=== PATIENT | male | born 1985 | race Caucasian/White ===

== ENCOUNTER 2017-03-14 10:15 | Observation (INO) ==
[2017-03-14] MEDS ORDERED: NS 1,000 ML IV ONE (10:39)
[2017-03-14 10:55] LABS: MANUAL DIFF NEEDED? NO
[2017-03-14 10:58] LABS: BASO% 0.2 % (0.0-0.8); EOS# 0.07 X1000 (0.0-0.7); EOS% 0.7 % (0.0-10.0); HEMATOCRIT 43.3 % (42.0-52.0); IMM GRAN# 0.01 X1000 (0.0-0.04); IMM GRAN% 0.1 % (0.0-0.5); LYMPH# 0.95 X1000 (1.2-3.4); LYMPH% 9.6 % (20.5-51.1); MCH 28.3 PG (27-31); MCHC 32.3 g/dL (33-37); MCV 87.5 FL (81-99); MONO# 0.85 X1000 (0.11-0.59); MONO% 8.6 % (1.7-9.3); MPV 10.3 FL (7.4-10.4); NEUT% 80.8 % (42.2-75.2); PLT 195 X1000 (130-400); RBC 4.95 XMIL (4.7-6.1)
[2017-03-14 11:14] LABS: ACETAMINOPHEN < 1.2 ug/mL (10-30); AGAP 13; ALBUMIN 4.4 g/dL (3.5-5.0); ALKALINE PHOSPHATASE 61 U/L (32-122); BUN 11 mg/dL (8-22); CALCIUM 8.8 mg/dL (8.8-10.2); CHLORIDE 102 mmol/L (98-107); COSMO 280; GOT 20 U/L (10-34); GPT 36 U/L (10-44); POTASSIUM 3.6 mmol/L (3.5-5.1); SODIUM 141 mmol/L (136-145); TCO2 26 mmol/L (25-35)
--- NOTE | 2017-03-14 11:48 | EKG Report ---
Test Performed on : 03/14/2017 10:48:16 AM Test Reason : OVERDOSE Blood Pressure : / mmHG Vent. Rate : 068 BPM Atrial Rate : 068 BPM P-R Int : 142 ms QRS Dur : 098 ms QT Int : 388 ms P-R-T Axes : 058 067 032 degrees QTc Int : 412 ms Normal sinus rhythm. Normal ECG No previous ECGs available Unconfirmed Result
[2017-03-14 11:52] LABS: UR AMPHETAMINES QUAL NONE DETECTED (NONE DETECT); UR BARBITUATES QUAL NONE DETECTED (NONE DETECT); UR BENZODIAZEPIN QUAL NONE DETECTED (NONE DETECT); UR CANNABINOIDS QUAL NONE DETECTED (NONE DETECT); UR COCAINE QUAL NONE DETECTED (NONE DETECT); UR MDMA QUAL NONE DETECTED (NONE DETECT); UR METHADONE QUAL NONE DETECTED (NONE DETECT); UR METHAMPHETAMINE QUAL NONE DETECTED (NONE DETECT); UR OPIATES QUAL NONE DETECTED (NONE DETECT); UR OXYCODONE QUAL NONE DETECTED (NONE DETECT); UR PCP QUAL NONE DETECTED (NONE DETECT); UR TCA QUAL NONE DETECTED (NONE DETECT)
--- NOTE | 2017-03-14 12:56 | Diag Imaging Result Document ---
PROCEDURE NAME: HEAD W/O CONTRAST - 03/14/2017 CT HEAD WITHOUT CONTRAST: COMPARISON: None available. FINDINGS: There is no discrete intracranial mass, mass effect, or intracranial hemorrhage. There is no evidence of hydrocephalus. There is no evidence of acute infarct given the limited sensitivity of CT versus MRI. The surrounding soft tissues and bony structures are essentially unremarkable. IMPRESSION: No evidence of acute intracranial pathology.
--- NOTE | 2017-03-14 13:15 | PROVIDER DOCUMENTATION ---
This chart was entered by Vince Moreno Scribe, acting as scribe for Laurita Oconnor MD. [id number] Abuse/Overdose - General Chief Complaint: Altered Mental Status Stated Complaint: AMS Time Seen by Provider: 03/14/17 10:30 Source: patient, family Allergies/Adverse Reactions: Allergies Allergy/AdvReac Type Severity Reaction Status Date / Time No Known Allergies Allergy Verified 07/13/15 13:03 Home Medications: Home Medication List Medication Instructions Recorded Confirmed Last Taken Type Amoxicillin/Potassium Clav 1 each PO DAILY #5 tablet 07/13/15 Unknown Rx [Augmentin 875-125 Tablet] Escitalopram Oxalate [Lexapro] 20 mg PO DAILY 07/13/15 07/13/15 07/12/15 History Ibuprofen [Motrin] 800 mg PO Q8H PRN PRN #30 tablet 07/13/15 Unknown Rx - History of Present Illness-Drug/Alcohol Nature of Presenting Problem: 32 yo M presents to the ER with family. Pt is alert and can follow commands, but is not talking. Pts family states he went to a constitution party last night. Dad found him this morning standing in the pavon and states he was out of it. Pt would not talk to family. The family states that he hangs out with people who take drugs and thinks that they gave him some. Family states pt does drink and dips, but they deny him taking any drugs. Pt nodded yes when asked if he wanted to speak, but was not able. Pt can follow commands asked, but moves very slowly. Family states this has not happened before. Pt denies taking anything, denies any pain , and has not eaten/drank anything today. This episode of drinking or use began:: last night Severity: reports: moderate Psychiatric Complaints: reports: denies symptoms Associated Symptoms: reports: denies symptoms Similar Symptoms Previously?: No Review of Systems - Adult - REVIEW OF SYSTEMS - ADULT ROS:: limited per condition (pt is non verbal, but can nod yes or no to questions) Constitutional: denies: chills, fever Respiratory: denies: cough, shortness of breath Gastrointestinal: denies: abdominal pain, nausea, vomiting Musculoskeletal: denies: back pain, neck pain All Other Systems: Reviewed and Negative Past History - Adult - PAST MEDICAL HISTORY-ADULT Review of Records: reports: Old Records Reviewed, Nursing Assessment Review, Medications Reviewed Major Childhood Illnesses: reports: denies history Cardiovascular: reports: denies history Respiratory: reports: denies history Gastrointestinal: reports: denies history Obstetrical/Gynecological: reports: denies history Genitourinary: reports: denies history Musculoskeletal: reports: denies history Neurological: reports: denies history Endocrine/Immune: reports: denies history Other Conditions: reports: denies history - IMMUNIZATION STATUS Childhood Immunizations: See Nurse Assessment Flu Vaccine: See Nurse Assessment - FAMILY HISTORY Family History: reviewed, not pertinent Physical Exam-General - PHYSICAL EXAM-ADULT Initial Vital Signs Reviewed: Yes - CONSTITUTIONAL General Appearance: alert, slow to respond, other (not verbal) - NECK Neck: full range of motion, supple - RESPIRATORY Respiratory: chest non-tender, lungs clear, normal breath sounds - CARDIOVASCULAR Cardiovascular: normal peripheral pulses, regular rate, rhythm - GASTROINTESTINAL (ABDOMEN) Abdominal Exam: normal bowel sounds, non tender, soft - MUSCULOSKELETAL Extremity: normal range of motion, normal gait - SKIN Integumentary: normal color, normal turgor Progress - PLAN OF CARE/RESULTS Progress/Plan/Lab Results: Vital Signs - 8 hr 03/14/17 10:16 03/14/17 11:21 03/14/17 12:11 Temperature 98.7 F Pulse Rate 87 67 70 Respiratory Rate 18 18 18 Blood Pressure 121/075 113/69 110/62 O2 Sat by Pulse Oximetry 95 95 95 03/14/17 12:51 Temperature Pulse Rate 66 Respiratory Rate 15 Blood Pressure 122/60 O2 Sat by Pulse Oximetry 95 Laboratory Results - last 24 hr 03/14/17 03/14/17 03/14/17 10:49 10:49 10:49 WBC 9.88 RBC 4.95 Hgb 14.0 Hct 43.3 MCV 87.5 MCH 28.3 MCHC 32.3 L RDW Std Deviation 12.8 Plt Count 195 MPV 10.3 Immature Gran % (Auto) 0.1 Neut % (Auto) 80.8 H Lymph % (Auto) 9.6 L [facility] % (Auto) 8.6 Eos % (Auto) 0.7 Baso % (Auto) 0.2 Immature Gran # (Auto) 0.01 Neut # (Auto) 7.98 H Lymph # (Auto) 0.95 L [facility] # (Auto) 0.85 H Eos # (Auto) 0.07 Baso # (Auto) 0.02 Sodium 141 Potassium 3.6 Chloride 102 Carbon Dioxide 26 Anion Gap 13 BUN 11 Creatinine 1.0 Estimated GFR/1.73 m2 > 60 BUN/Creatinine Ratio 11 Glucose 89 Calculated Osmolality 280 Calcium 8.8 Total Bilirubin 0.60 AST 20 ALT 36 Alkaline Phosphatase 61 Creatine Kinase Total Protein 7.0 Albumin 4.4 Globulin 3.0 Albumin/Globulin Ratio 2.0 Salicylates < 3.00 L Urine Opiates Screen Ur Oxycodone Screen Urine Methadone Screen Acetaminophen < 1.2 L Ur Barbituates Screen Ur Tricyclics Screen Ur Phencyclidine Scrn Ur Amphetamines Screen U Methamphetamines Scrn Urine MDMA Screen U Benzodiazepines Scrn Urine Cocaine Screen U Cannabinoids Screen Plasma/Serum Ethyl Alc 03/14/17 03/14/17 10:49 11:30 WBC RBC Hgb Hct MCV MCH MCHC RDW Std Deviation Plt Count MPV Immature Gran % (Auto) Neut % (Auto) Lymph % (Auto) [facility] % (Auto) Eos % (Auto) Baso % (Auto) Immature Gran # (Auto) Neut # (Auto) Lymph # (Auto) [facility] # (Auto) Eos # (Auto) Baso # (Auto) Sodium Potassium Chloride Carbon Dioxide Anion Gap BUN Creatinine Estimated GFR/1.73 m2 BUN/Creatinine Ratio Glucose Calculated Osmolality Calcium Total Bilirubin AST ALT Alkaline Phosphatase Creatine Kinase 216 H Total Protein Albumin Globulin Albumin/Globulin Ratio Salicylates Urine Opiates Screen NONE DETECTED Ur Oxycodone Screen NONE DETECTED Urine Methadone Screen NONE DETECTED Acetaminophen Ur Barbituates Screen NONE DETECTED Ur Tricyclics Screen NONE DETECTED Ur Phencyclidine Scrn NONE DETECTED Ur Amphetamines Screen NONE DETECTED U Methamphetamines Scrn NONE DETECTED Urine MDMA Screen NONE DETECTED U Benzodiazepines Scrn NONE DETECTED Urine Cocaine Screen NONE DETECTED U Cannabinoids Screen NONE DETECTED Plasma/Serum Ethyl Alc Orders Category Date Time Status Cardiac Monitoring DIRECTED Care 03/14/17 10:38 Active Finger Stick Blood Sugar (ED) DIRECTED Care 03/14/17 10:38 Active Saline Loc DIRECTED Care 03/14/17 10:38 Active HEAD W/O CONTRAST [CT] Stat Exams 03/14/17 10:39 Draft ABG [RESP] Routine Lab 03/14/17 13:02 Ordered ACETAMINOPHEN [TDM] Stat Lab 03/14/17 10:49 Completed ALCOHOL BLOOD Stat Lab 03/14/17 10:49 Completed CBC WITH ELECTRONIC DIFF [HEME] Stat Lab 03/14/17 10:49 Completed CK TOTAL [CHEM] Stat Lab 03/14/17 10:49 Completed COMPREHENSIVE METABOLIC PANEL [CHEM] Stat Lab 03/14/17 10:49 Completed SALICYLATES [TDM] Stat Lab 03/14/17 10:49 Com[address]INE DRUG SCREEN PL Stat Lab 03/14/17 11:30 Completed 0.9% Sodium Chloride Inj [Ns] 1,000 ml Med 03/14/17 10:39 Discontinued IV 999 mls/hr Pulse Oximetry Stat Oth 03/14/17 10:38 Active EKG [EKG] Stat Ther 03/14/17 10:38 Draft Result Diagrams: 03/14/17 10:49 03/14/17 10:49 - EKG 1 Time of EKG reading by physician:: 10:50 EKG Read and Signed by:: Laurita Oconnor EKG Interpretation (*Must complete 3 of following elements*): Normal Rate: 68 Rhythm: NSR [place]: normal QRS: normal [place] Interval: normal ST Wave: normal Comments: normal ekg - CT/MRI 1 CT Study: Head Impression: Normal CT Results: negative CT Departure - Departure Time of Disposition Decision: 13:08 DIAGNOSIS: Altered mental status Disposition: ADMITTED INPATIENT 09 Certified Medical Emergency: Emergent Condition: Stable Additional Freetext Instructions: ED Follow Up Instructions: You have been treated by a care provider in the Emergency Department. These instructions are being provided to you so you can have an understanding of how to care for yourself upon discharge. Upon discharge from the Emergency Department, you are responsible for making arrangements for follow-up care by a physician of your choice. Take all prescribed medications as directed. Return to the Emergency Department immediately for any new or worsening symptoms. You may call the Physician Referral phone number at [phone] to obtain a list of Physicians who are taking new patients. Referrals and Follow-Ups: None,PCP [Primary Care Provider] - - Critical Care Note This patient required my direct & personal management of CC.: No This chart was documented by the indicated scribe, (Vince Moreno Scribe) and accurately reflects the services I performed and decisions made by Elvin zhou Tom-Meka M., MD, as attested by the provider's signature.
[2017-03-14 13:24] LABS: BE 0.1 mmoll (-3.0-3.0); BLOOD TYPE ARTERIAL; METHB 1.4 % (0.0-1.5); O2(CT) 17.5 mL/dL (15.0-23.0); PCO2(98.6) 46 mmHg (35-45); PO2(98.6) 77 mmHg (60-100); SAMPLE BLOOD; SAO2 97.5 % (95.0-100.0); THB 13.3 g/dL (11.5-17.4); pH(98.6) 7.36 (7.35-7.45)
[2017-03-14 13:34] LABS: DRAW SITE R RADIAL; MODALITY ROOM AIR
[2017-03-14 13:35] LABS: ALLEN TEST YES
[2017-03-14] MEDS ORDERED: ZOFRAN IV PRN (13:37)
[2017-03-14] MEDS ORDERED: TYLENOL PO PRN (13:37)
[2017-03-14] MEDS ORDERED: ATIVAN IV PRN (13:39)
[2017-03-14] MEDS ORDERED: LOVENOX SUBQ SCH (13:45)
[2017-03-14 14:20] LABS: AGAP 14; ALBUMIN 3.9 g/dL (3.5-5.0); ALKALINE PHOSPHATASE 53 U/L (32-122); BUN 11 mg/dL (8-22); CALCIUM 8.3 mg/dL (8.8-10.2); CHLORIDE 105 mmol/L (98-107); COSMO 280; GOT 18 U/L (10-34); GPT 32 U/L (10-44); POTASSIUM 3.6 mmol/L (3.5-5.1); SODIUM 141 mmol/L (136-145); TCO2 23 mmol/L (25-35); TOTAL PROTEIN 6.1 g/dL (6.3-8.3)
[2017-03-14] MEDS: NS 1,000 ML IV SCH (14:33)
--- NOTE | 2017-03-14 15:06 | HISTORY AND PHYSICAL ---
CHIEF COMPLAINT: This patient was brought in to the emergency department secondary to altered mental status. HISTORY OF PRESENT ILLNESS: A 32-year-old, male with no past medical history was brought in by his parents with a chief complaint of altered mental status, apparently this patient went to a republican yesterday in the afternoon and he never went back home. His dad decided to pick him up and when he found Mr. Correa he standing in the hallway just staring at the wall then he took his son to the car and the son was not talking and he just was staring at the road and closing his eyes. Here in the emergency department, we did a CT of the head that did not show any acute abnormality. No motor deficits. When I examined the patient, he was answering my questions properly, but he was not answering all of then. He was just sleepy, and his answers were slow. This patient will be admitted to the ICU. At this point, we are not sure if this patient took any kind of drugs. He does not remember taking any. Urine toxicology negative for drugs. REVIEW OF SYSTEMS: All the 14 points of review of systems were reviewed, and all negative except as per history of present illness. PAST MEDICAL HISTORY: None. PAST SURGICAL HISTORY: None. SOCIAL HISTORY: They denied alcohol, drugs and smoking cigarettes. FAMILY HISTORY: Noncontributory. PHYSICAL EXAMINATION: VITAL SIGNS: Temperature 98.7 degrees, pulse 66, respiratory rate 15, blood pressure 122/60, O2 saturation 95% on room air. HEENT: Head normocephalic. No trauma. PERRLA. NECK: Supple. No JVD. No masses. Central trachea. CHEST: Clear to auscultation. No wheezing. No rales. CARDIOVASCULAR: RRR. No murmurs. ABDOMEN: Soft, nontender, nondistended. No hepatosplenomegaly. EXTREMITIES: No edema. No clubbing. No cyanosis. NEUROLOGICAL: The patient is sleepy but arousable. His answers are slow. He is following commands. He is answering some of my questions. He is able to recognize his parents. LABORATORY DATA: WBC 9.8, hemoglobin 14, hematocrit 43.3, platelets 195,000. Sodium 141, potassium 3.6, chloride 102, bicarbonate 26, BUN 11, creatinine 1, glucose 89, calcium 8.8, AST 20, ALT 36, alkaline phosphatase 61, CK 216, albumin 4.4, urine toxicology negative and no alcohol. ASSESSMENT AND PLAN: Altered mental status. At this point, we are not sure if this patient has been taking any kind of new drugs that we cannot evaluate with urine toxicology. Anyway, I will put this patient in the ICU and I will monitor this patient during the night. At this moment, this patient is not having any respiratory distress or pain. I will check the CBC and CMP in the morning. The parents were notified, they were at the bedside. cc: Travis Mathis MD
[2017-03-14 20:41] LABS: URINE CULTURE PL NEEDED? NO
[2017-03-14 20:56] LABS: BILIRUBIN URINE NEGATIVE (NEGATIVE); BLOOD URINE 4+ (NEGATIVE); CLARITY CLEAR (CLEAR); COLOR YELLOW; GLUCOSE URINE NEGATIVE (NEGATIVE); LEUKOCYTES URINE NEGATIVE (NEGATIVE); NITRITE URINE NEGATIVE (NEGATIVE); PROTEIN URINE NEGATIVE (NEGATIVE); SP GRAVITY URINE 1.015; UROBILINOGEN URINE NORMAL
[2017-03-14 21:01] LABS: URINE CAST NONE SEEN /LPF; URINE CRYSTAL NONE SEEN /HPF; URINE EPITHELIAL CELLS <10 /HPF (<10); URINE SOURCE CATH; URINE WBC <10 /HPF (<10)
[2017-03-15 05:04] LABS: MANUAL DIFF NEEDED? NO
[2017-03-15 05:07] LABS: BASO% 0.5 % (0.0-0.8); EOS# 0.19 X1000 (0.0-0.7); EOS% 3.1 % (0.0-10.0); HEMATOCRIT 42.6 % (42.0-52.0); HEMOGLOBIN 13.6 g/dL (14.0-18.0); IMM GRAN# 0.02 X1000 (0.0-0.04); IMM GRAN% 0.3 % (0.0-0.5); LYMPH# 1.26 X1000 (1.2-3.4); LYMPH% 20.3 % (20.5-51.1); MCH 28.6 PG (27-31); MCHC 31.9 g/dL (33-37); MCV 89.5 FL (81-99); MONO# 0.54 X1000 (0.11-0.59); MONO% 8.7 % (1.7-9.3); MPV 10.7 FL (7.4-10.4); NEUT% 67.1 % (42.2-75.2); PLT 183 X1000 (130-400); RBC 4.76 XMIL (4.7-6.1)
[2017-03-15] MEDS: NS 1,000 ML IV SCH (09:01)
[2017-03-15 13:29] VITALS: BP 143/72
--- NOTE | 2017-03-15 20:41 | DISCHARGE SUMMARY ---
ADMISSION DATE: 03/14/2017 DISCHARGE DATE: 03/15/2017 PRIMARY CARE PHYSICIAN: None. ADMISSION DIAGNOSIS: Altered mental status. DISCHARGE DIAGNOSIS: Toxic Metabolic encephalopathy Suspected Recreational Drug Use. Aspiration Pneumonia SUMMARY OF FINDINGS: This is a 32-year-old male who presented to the emergency room with altered mental status. Apparently he had went to a republican the day prior and had never gone back home. Dad decided to pick him up and when he found the patient he was standing in the hallway just staring at the wall. Hen then took his son to the car and the son was not talking. He was just staring at the road and closing his eyes. In the emergency room a head CT was done that did not show any acute abnormality, no motor deficit. On examination, the patient answered questions appropriately but he was not answering all of them. He was sleepy and his answers were slow. He was admitted initially to Intensive Care. It was unsure yet if he took any type of drugs but his urine toxicology was negative for drugs. His electrolytes and laboratory data have all been normal. He is alert and awake today, and answering questions appropriately. It is noted that his head CT showed no evidence of an acute intracranial pathology so he will be discharged home today. DISCHARGE MEDICATIONS: 1. Augmentin 1 p.o. daily #5 with no refills. 2. Lexapro 20, 1 p.o. daily. 3. Ibuprofen 800 mg p.o. q.8 hours p.r.n. FOLLOWUP: We gave him the number to the physician referral line and also information on [facility] to have [facility]. All discharge instructions have been reviewed with the patient. He verbalizes understanding. DISCHARGE TIME: 35 minutes. Dictated by YOBANI Desai for Howard Asif MD cc: YOBANI Dseai MD [facility]
== END 2017-03-15 14:48 | disposition home or self-care (01) ==
LOC: P.ED 10:15 → INTOOBSV 14:25 → P.ICU 14:25 → SUATTDRO 14:25 → P.MEDSURG 18:29
PROVIDERS: ATTEND Internal Medicine

== ENCOUNTER 2019-02-17 13:09 | Observation (INO) ==
[2019-02-17] MEDS ORDERED: TYLENOL PO PRN (13:11)
[2019-02-17] MEDS ORDERED: ZOFRAN IV PRN (13:11)
[2019-02-17] MEDS ORDERED: LABETALOL IV PRN (13:17)
[2019-02-17] MEDS ORDERED: SODIUM CHLORIDE 0.9% INJ SCH (13:30)
--- NOTE | 2019-02-17 14:05 | HISTORY AND PHYSICAL ---
CHIEF COMPLAINT: Bright red blood in his stool. HISTORY OF PRESENT ILLNESS: The patient is a 34-year-old white male followed in my medical practice, who has been having difficulty over the past month. He is having some pain in his right abdominal area, and only today has noted some bright red rectal bleeding. He was in yesterday and had labs which were normal to include a hemoglobin of 15.9, white count 8.23, platelets 243, BUN of 8, creatinine 0.9. Liver function tests had 1 mildly elevated SGPT at 66. Amylase, lipase normal. D-dimer was normal. Urinalysis normal. This was all done yesterday after he had some complaints of some right thoracic back pain off and on for about a month and some right abdominal pain. He also had some nausea, vomiting, and diarrhea very recently, he has never had EGD or colonoscopy. He has been off his BP medications over the past 3 months, and has a history of severe hypertension diagnosed in 2014. Yesterday, we restarted him on Lotrel 10/40 daily and Bystolic 5 mg daily. He said he took 1 dose of those. Otherwise, he is on no medications. ALLERGIES: No known drug allergies. PAST MEDICAL HISTORY: 1. Hypertension diagnosed 2014. 2. Hypercholesterolemia diagnosed 2016. 3. Vitamin D deficiency diagnosed 2016. 4. Depression diagnosed 2014. PAST SURGICAL HISTORY: Negative. FAMILY HISTORY: Notable for hypertension in grandmother x2, grandfather x2, mother, father and sister; CVA in his grandfather; diabetes mellitus in his mother and father; NE and coronary artery disease in his grandfather and father; lung cancer in his grandfather; COPD in 2 grandmothers. SOCIAL HISTORY: Patient lives in [place]. He is . He has one 14-year-old stepdaughter. Has never been a smoker. Drinks rare alcohol. 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 REVIEW OF SYSTEMS: Negative, except as above. PHYSICAL EXAM: VITAL SIGNS: Weight 229, which is stable, height 5 feet 9 inches tall, blood pressure 175/115, pulse 97, BMI 33. GENERAL: Muscular white male in no acute distress. SKIN: Warm and dry. No rashes. No bruising. EYES: PERRL, EOMI. Sclerae anicteric. OP no redness. Tongue in the midline. NECK: No LA, TMG, JVD, bruits. CV: RRR without murmur. LUNGS: CTA. BACK: Mild tenderness to palpation right mid thoracic paraspinous musculature, FROM at the back. ABDOMEN: Soft. Active bowel sounds. Mild to moderate tenderness right upper quadrant. Mild tenderness right lower quadrant. No mass or organomegaly. No rebound or guarding. : Testicular exam deferred. RECTAL: Shows normal size prostate. Heme-positive stool prominently with no external hemorrhoids nor anal fissure identified on exam. EXTREMITIES: No CCE. PP 2+. NEUROLOGIC: CN 2-12 intact. NF. ASSESSMENT: 1. Hematochezia. 2. Abdominal pain. 3. Recent nausea, vomiting, diarrhea. 4. Right thoracic back pain. 5. Urgent hypertension. 6. Noncompliance. 7. Hypercholesterolemia. 8. Vitamin D deficiency. 9. History of depression. PLAN: Admit the patient. Check repeat CBC. Check PT, PTT, CMP. We will check CT abdomen and pelvis without contrast. We had ordered an outpatient abdominal ultrasound, but we may get that inpatient. We will wait and see what his labs and CT show. We will work on his blood pressure with p.r.n. labetalol and continue his Lotrel 10/40 and daily Bystolic at 5 mg daily. Check EKG. Note that his urine yesterday failed to show any protein or blood. Monitor BPs on telemetry. Give him low-dose normal saline with potassium supplementation, IV Protonix. cc: Cornelius Estrella MD
--- NOTE | 2019-02-17 14:25 | Diag Imaging Result Doc PS360 ---
EXAM: ABDOMEN FLAT/UPRIGHT HISTORY: hematochezia TECHNIQUE: Upright and supine abdomen, two views COMPARISON: None. FINDINGS: There is stool throughout the colon. No organomegaly. No foreign body. Mild scoliosis. No abnormal abdominal calcifications. IMPRESSION: Prominent constipation Electronically signed by Michael Ortiz 02/17/2019 2:22 PM
--- NOTE | 2019-02-17 14:57 | EKG Report ---
Test Performed on : 02/17/2019 2:42:19 PM Test Reason : urgent htn Blood Pressure : / mmHG Vent. Rate : 085 BPM Atrial Rate : 085 BPM P-R Int : 152 ms QRS Dur : 098 ms QT Int : 374 ms P-R-T Axes : 050 020 024 degrees QTc Int : 445 ms Normal sinus rhythm. Nonspecific T wave abnormality Abnormal ECG When compared with ECG of 10-APR-2018 23:49, No significant change was found Confirmed by Rebecca BRIONES, Jr ([id number]) on 02/18/2019 8:55:22 AM
--- NOTE | 2019-02-17 15:23 | Diag Imaging Result Doc PS360 ---
EXAM: CT ABDOMEN/PELVIS W/O CONTRAST HISTORY: hematochezia/abd pain TECHNIQUE: CT abdomen and pelvis without contrast COMPARISON: None. FINDINGS: No calcified gallstones or adjacent inflammation. There is likely mild fatty infiltration of the liver. No focal hepatic abnormality identified on this noncontrasted study. Normal spleen, pancreas, and adrenal glands. No renal stones. No hydronephrosis normal aorta. Normal appendix. No abscess. No bowel obstruction. No ascites. The urinary bladder is moderately distended and is normal. Normal prostate. IMPRESSION: No acute abnormality identified This exam was performed using automated exposure control, adjustment of mA or kV according to patient size, and/or use of iterative reconstruction technique. Electronically signed by Michael Ortiz 02/17/2019 3:21 PM
[2019-02-17 16:01] LABS: BASO# 0.03 X1000 (0.0-0.2); BASO% 0.4 % (0.0-0.8); EOS# 0.07 X1000 (0.0-0.7); EOS% 0.9 % (0.0-10.0); HEMATOCRIT 44.8 % (42.0-52.0); HEMOGLOBIN 14.7 g/dL (14.0-18.0); IMM GRAN# 0.03 X1000 (0.0-0.04); IMM GRAN% 0.4 % (0.0-0.5); LYMPH# 1.43 X1000 (1.2-3.4); LYMPH% 18.5 % (20.5-51.1); MCH 28.5 PG (27-31); MCHC 32.8 g/dL (33-37); MONO# 0.53 X1000 (0.11-0.59); MONO% 6.9 % (1.7-9.3); MPV 10.1 FL (7.4-10.4); NEUT# 5.62 X1000 (1.4-6.5); NEUT% 72.9 % (42.2-75.2); PLT 224 X1000 (130-400); RBC 5.15 XMIL (4.7-6.1); RDW 13.1 % (11.5-14.5); WBC 7.71 X1000 (4.8-10.8)
[2019-02-17 16:19] LABS: AGAP 10; ALB/GLOB RATIO 1.7; ALBUMIN 4.4 g/dL (3.5-5.0); ALKALINE PHOSPHATASE 60 U/L (32-122); BUN 7 mg/dL (8-22); CALCIUM 8.9 mg/dL (8.8-10.2); CHLORIDE 110 mmol/L (98-107); COSMO 290; CREATININE 0.8 mg/dL (0.7-1.2); ESTIMATED GFR > 60; GLUCOSE 119 mg/dL (70-104); GOT 27 U/L (10-34); GPT 65 U/L (10-44); POTASSIUM 4.1 mmol/L (3.5-5.1); SODIUM 146 mmol/L (136-145); TCO2 26 mmol/L (25-35); TOTAL BILIRUBIN 0.28 mg/dL (0.20-1.00)
[2019-02-17 16:21] LABS: INR 0.89; PROTIME 12.7 Seconds (11.0-16.0)
[2019-02-17 16:22] LABS: PTT 30.5 Seconds (22.3-41.8)
[2019-02-17] MEDS: NS + KCL 20 MEQ 1,000 ML IV SCH (17:03)
[2019-02-17] MEDS: PROTONIX IV SCH (17:13)
[2019-02-17] MEDS: DILAUDID IV PRN (21:09)
[2019-02-18] MEDS: DILAUDID IV PRN ×3 (02:57→20:07)
[2019-02-18] MEDS: NS + KCL 20 MEQ 1,000 ML IV SCH (02:58)
[2019-02-18 06:41] LABS: AGAP 8; BUN 6 mg/dL (8-22); CALCIUM 8.4 mg/dL (8.8-10.2); CHLORIDE 108 mmol/L (98-107); COSMO 277; CREATININE 0.7 mg/dL (0.7-1.2); ESTIMATED GFR > 60; GLUCOSE 95 mg/dL (70-104); POTASSIUM 3.9 mmol/L (3.5-5.1); SODIUM 140 mmol/L (136-145); TCO2 24 mmol/L (25-35)
[2019-02-18 06:48] LABS: BASO# 0.03 X1000 (0.0-0.2); BASO% 0.5 % (0.0-0.8); EOS% 1.6 % (0.0-10.0); HEMATOCRIT 42.7 % (42.0-52.0); HEMOGLOBIN 13.9 g/dL (14.0-18.0); IMM GRAN# 0.04 X1000 (0.0-0.04); IMM GRAN% 0.6 % (0.0-0.5); LYMPH# 1.57 X1000 (1.2-3.4); MCH 28.4 PG (27-31); MCHC 32.6 g/dL (33-37); MCV 87.3 FL (81-99); MONO% 7.9 % (1.7-9.3); MPV 10.6 FL (7.4-10.4); NEUT# 4.05 X1000 (1.4-6.5); NEUT% 64.4 % (42.2-75.2); PLT 203 X1000 (130-400); RBC 4.89 XMIL (4.7-6.1); RDW 13.4 % (11.5-14.5); WBC 6.29 X1000 (4.8-10.8)
[2019-02-18] MEDS: LOTREL 5/20 MG PO SCH (09:45)
[2019-02-18] MEDS: BYSTOLIC PO SCH (09:45)
[2019-02-18] MEDS ORDERED: SALINE LOCK IV FLUID XX ONE (09:53)
--- NOTE | 2019-02-18 12:20 | Diag Imaging Result Doc PS360 ---
US ABDOMEN-COMPLETE - 02/18/2019 INDICATION: abd pain/nausea COMPARISON: CT from 02/17/2019 FINDINGS: The liver is moderately fatty. No liver masses. The pancreas is obscured. The gallbladder and both kidneys are normal. The spleen is slightly enlarged. Spleen size is 13.5 x 13.1 x 4.8 cm. Common bile duct measures 3 mm. Aorta, IVC, and main portal vein are patent. IMPRESSION: Fatty liver. Mild splenomegaly. Electronically signed by Hitesh Uriostegui 02/18/2019 12:18 PM
[2019-02-18] MEDS: PROTONIX IV SCH (16:47)
[2019-02-18] MEDS: MIRALAX PO SCH (16:48)
--- NOTE | 2019-02-18 17:14 | Diag Imaging Result Doc PS360 ---
EXAM: HIDA SCAN W/ EJECTION FRACTION 02/18/2019 HISTORY: abd pain/nausea TECHNIQUE: Hepatobiliary scan with ejection fraction, 4.3 mCi of technetium 99m Choletec. COMMENT: There is activity in the gallbladder on the first image. There is also activity in the small bowel. After fatty meal administration the gallbladder ejects 59% of the activity. IMPRESSION: Normal study. Electronically signed by Michael Shah 02/18/2019 5:11 PM
[2019-02-19 08:07] VITALS: BP 159/107
[2019-02-19] MEDS: LOTREL 5/20 MG PO SCH (08:54)
[2019-02-19] MEDS: BYSTOLIC PO SCH (08:54)
[2019-02-19] MEDS: MIRALAX PO SCH (08:55)
--- NOTE | 2019-02-20 14:03 | DISCHARGE SUMMARY ---
ADMISSION DATE: 02/17/2019 DISCHARGE DATE: 02/19/2019 DIAGNOSES: 1. Hematochezia, thought related to probable internal hemorrhoids. 2. Abdominal pain improved. 3. Recent nausea, vomiting, and diarrhea improved. 4. Right thoracic back pain. 5. Urgent hypertension. 6. Noncompliance. 7. Hypercholesterolemia. 8. Vitamin D deficiency. 9. History of depression. 10. Constipation. PROCEDURES: 1. Flat and upright of the abdomen revealing prominent constipation. 2. CT abdomen and pelvis without contrast reveals mild fatty infiltration of the liver otherwise negative. 3. Abdominal ultrasound done 02/18 revealing fatty liver, mild splenomegaly. No gallstones. 4. HIDA scan with CCK revealing EF of 59% which is normal. REASON FOR ADMISSION AND HOSPITAL COURSE: The patient is a 34-year-old white male followed in my medical practice came into the office with complaints of pain in his right abdomen and noted on the day of admission some bright red rectal bleeding. He had been lab up the day prior to admission with a visit in my office as well and his white count was normal at 8.23, platelets 249,000, hemoglobin 15.9, BUN 8, creatinine 0.9. Liver function tests showed mild elevation in SGPT at 66, amylase, lipase normal, D-dimer normal, urinalysis normal. Patient also had some right thoracic back pain off and on for about a month and some into the right abdomen and had developed some nausea, vomiting, diarrhea recently. He has never had EGD and colonoscopy. The patient had been noncompliant with blood pressure medicines for 3 months prior to the day before this admission and then he was started back on Lotrel through the office at 10/40 daily and Bystolic 5 mg daily. Blood pressures on the day of admission were still markedly elevated at 175/115 and he was having the abdominal pain. He was tender in the right abdomen. Rectal exam failed to show any external hemorrhoids and no anal fissure. Prostate was normal size and without nodules but he was heme-positive. The patient was admitted. His labs were repeated and showed normal CBC, PT, PTT, CMP continue to show ALT at 65, otherwise was normal. He was hydrated well, given clear liquids. Flat and upright of the abdomen revealed some constipation otherwise CT of the abdomen failed to show any abnormality other than some fatty liver. Abdominal ultrasound was done as he was quite tender in the right abdomen and it failed to show gallstones. It did show some fatty liver and splenomegaly. The patient underwent HIDA scan with CCK, EF of 59%, which was normal. The patient was treated with laxatives and he had bowel movements. They were not bloody and it was felt he could be discharged home to follow up with Dr. Pichardo or Phillip outpatient. DISCHARGE MEDICATIONS: Lotrel 10/40 daily, Prozac 20 mg daily, trazodone 50 mg p.o. at bedtime, Bystolic 5 mg p.o. daily, MiraLAX 17 g in 8 ounces of water daily, Protonix 40 mg daily, clonidine 0.1 mg p.o. b.i.d. p.r.n. systolics greater than 180 or diastolics greater than 105. We note during the hospitalization his blood pressure was labile and for instance it was 120/64 at 3:25 on the day of discharge and 159/107 at 8 a.m. so it is up and down. We expect that to level out as he remains on the BP medications long-term. He had been on those before and had improved markedly into the normal range on those medications in the past. He will follow up in my office in 2 to 4 weeks and again he will follow with GI specialist today. cc: Cornelius Estrella MD
== END 2019-02-19 10:11 | disposition home or self-care (01) ==
LOC: INTOOBSV 13:09 → DIRADM 13:09 → 4N 13:51
PROVIDERS: ADMIT Family Medicine; ATTEND Family Medicine
CPT/HCPCS: 74019; 74020; 74176; 76700; 78227; 80048; 80053; 85025; 85610; 85730; 93005; 93010; A9270; A9537; C9113; J1170; J3480; S0164